=== PATIENT | male | born 1965 | race American Indian/Alaskan Native ===

== ENCOUNTER 2018-04-30 06:18 | Day surgery (SDC) | payer MEDICARE ==
[2018-04-30] MEDS ORDERED: NACL 0.9% 1000 ML 1,000 ML IV SCH (08:00)
[2018-04-30] MEDS ORDERED: DIPRIVAN 10 MG/ML IV ONE ×2 (09:08)
[2018-04-30] MEDS ORDERED: VERSED ONE (09:08)
[2018-04-30] MEDS ORDERED: WATER FOR IRRIG STERILE IR ONE (09:09)
--- NOTE | 2018-04-30 09:09 | Anesthesia Day of Surgery ---
Anesthesia Day of Surgery - Day of Surgery Patient Examined: Yes Patient H&P Reviewed: Yes Patient is NPO: Yes
--- NOTE | 2018-04-30 09:10 | Anesthesia Consultation ---
Anesthesia Consult and Med Hx Date of service: 04/30/18 - Airway Anesthetic Teeth Evaluation: Poor ROM Head & Neck: Adequate Mental/Hyoid Distance: Adequate Mallampati Class: Class III Intubation Access Assessment: Possibly Difficult - Pre-Operative Health Status ASA Pre-Surgery Classification: ASA3 - Pulmonary Hx Smoking: Yes - Cardiovascular System Hx Hypertension: Yes (high cholesterol) - Central Nervous System CVA: Yes (x4)
--- NOTE | 2018-04-30 09:41 | Short Stay Summary ---
Short Stay Documentation - Allergies and Medications Current Medications: Allergies No Known Allergies Allergy (Verified 01/29/17 10:41) Home Medications Medication Instructions Recorded Confirmed Last Taken Type Aspirin BABY CHEW TAB 81 mg PO DAILY 01/29/17 04/29/18 Unknown History Hydrochlorothiazide 25 mg PO DAILY 01/29/17 04/29/18 04/29/18 History AtorvaSTATin 80 mg PO DAILY 04/29/18 04/29/18 04/29/18 History Donepezil 5 mg PO DAILY 04/29/18 04/29/18 04/29/18 History Gabapentin 600 mg PO TID 04/29/18 04/29/18 04/29/18 History Losartan 50 mg PO BID 04/29/18 04/30/18 04/30/18 History buPROPion HCl 150 mg PO DAILY 04/29/18 04/29/18 04/29/18 History traMADol 50 mg PO DAILY 04/29/18 04/29/18 Unknown History Active Medications Sodium Chloride (Nacl 0.9% 1000 Ml) 1,000 mls @ 50 mls/hr IV DIRECT ANDRIY Last Admin: 04/30/18 08:11 Dose: 50 mls/hr Documented by: - Brief post op/procedure progress note Date of procedure: 04/30/18 Pre-op diagnosis: Colon cancer screening Post-op diagnosis: same (1. large friable polypoid masses 2. Colon polyp 3. Internal hemorrhoids 4. Poor prep) Procedure: Colonoscopy -incomplete due to a poor prep Anesthesia: MAC Findings: as above Surgeon: ISAK BROWN Estimated blood loss: none Pathology: none Condition: stable - Disposition Condition at discharge: Stable Disposition: DC-01 TO HOME OR SELFCARE Short Stay Discharge Plan Activity: no restrictions Weight Bearing Status: Full Weight Bearing Diet: regular Follow up with: ELISABETH IVEY NP [Primary Care Provider] - 7 Days
[2018-04-30 10:04] VITALS: BP 160/96
== END 2018-04-30 06:19 | disposition home or self-care (01) ==
LOC: GIO 06:18
PROVIDERS: ATTEND Internal Medicine Gastroenterology
DX: C18.7 Malignant neoplasm of sigmoid colon (principal); K63.5 Polyp of colon; K92.1 Melena; K64.8 Other hemorrhoids; I10 Essential (primary) hypertension; F17.210 Nicotine dependence, cigarettes, uncomplicated; Z79.82 Long term (current) use of aspirin; Z79.899 Other long term (current) drug therapy; E78.00 Pure hypercholesterolemia, unspecified; Z95.1 Presence of aortocoronary bypass graft; Z86.73 Personal history of transient ischemic attack (TIA), and cerebral infarction without residual deficits
CPT/HCPCS: 45378; J2250; J2704; J7030